=== PATIENT | female | born 1990 | race Caucasian/White ===

== ENCOUNTER → 2016-08-12 | Outpatient (CLI) | payer MEDICAID ==
[2015-04-02 11:47] VITALS: BP 117/72
--- NOTE | 2016-08-12 11:22 | RAD ---
Three views of the right knee Indication: Right knee pain Findings: No acute fracture or dislocation within the right knee. No suprapatellar joint effusion. P atellofemoral and femorotibial joint spaces are maintained. Impression: No radiographic abnormality identified within the right knee. Reported By:
== END ==
LOC: RAD 10:57
PROVIDERS: ATTEND Internal Medicine
DX: M25.561 Pain in right knee (principal)
CPT/HCPCS: 73560